=== PATIENT | female | born 1990 | race Caucasian/White ===

== ENCOUNTER 2017-01-14 21:17 | Emergency (ER) | payer OTHER ==
[~2017-01-14] VITALS: Ht 160 cm; Wt 56.7 kg
[2017-01-14] MEDS ORDERED: TETRACAINE 0.5% OPHTH SOLN 4ML XX ONE (23:30)
[2017-01-14] MEDS ORDERED: FLUORESCEIN OPHTH 1 MG STRIP XX ONE (23:30)
[2017-01-15] MEDS ORDERED: GENTAMICIN 0.3% OPHTH SOL 5 ML BTL OS ONE (00:15)
[2017-01-15 00:16] VITALS: BP 127/78
[2017-01-15] MEDS ORDERED: GENT3OPD OS (00:20)
== END 2017-01-15 00:28 | disposition home or self-care (01) ==
LOC: M ED 22:22
DX: S05.02XA Injury of conjunctiva and corneal abrasion without foreign body, left eye, initial encounter (principal); X58.XXXA Exposure to other specified factors, initial encounter; Y92.89 Other specified places as the place of occurrence of the external cause; Y93.89 Activity, other specified; Y99.9 Unspecified external cause status

== ENCOUNTER → 2018-06-26 | Outpatient (CLI) | payer OTHER ==
[~2018-06-26] MED LIST: ISOVUE-370 76% 100ML VIAL (Q9967) As Ordered
== END ==
LOC: M RAD 15:24
DX: R10.31 Right lower quadrant pain (principal); R11.2 Nausea with vomiting, unspecified

== ENCOUNTER → 2018-12-03 | Outpatient (CLI) | payer OTHER ==
[~2018-12-03] MED LIST changes: +GENT3OPD OS; -ISOVUE-370 76% 100ML VIAL (Q9967) As Ordered
--- NOTE | 2018-12-03 10:25 | REP ---
Complete abdominal sonography: History: Chronic nausea. Comparison CT study: June 26, 2018. Sonographic findings: Scanning through right upper quadrant of the abdomen demonstrates normal sized thin-walled gallbladder without evidence of stone or polyp. Common bile duct measures 0.3 cm in greatest diameter. No focal liver lesion is seen. Pancreas is unremarkable. A normal caliber aorta is seen, 1.5 cm in AP dimension. There is no evidence of ascites. Homogeneous normal size spleen is seen in the left upper quadrant. Renal cortical echogenicity pattern is normal and contours are smooth on both sides. Right renal dimensions are 10.7 x 6.1 x 3.9 cm. The left kidney measures 10.7 x 5.0 x 5.0 cm. There is an echogenic focus in the lower pole of the left kidney which could be a renal calculus. There is no evidence renal calculus on prior CT however. No other finding. Impression: Tiny echogenic focus lower pole left kidney which may be a renal calculus. Otherwise negative. Electronically Signed by Selvin Yaeger MD 12/03/2018 10:56 A
== END ==
LOC: M RAD 08:37
PROVIDERS: ATTEND Internal Medicine Gastroenterology
DX: N28.89 Other specified disorders of kidney and ureter (principal); K59.00 Constipation, unspecified

== ENCOUNTER 2018-12-25 11:17 | Day surgery (SDC) | payer OTHER ==
[~2018-12-25] VITALS: Ht 160 cm; Wt 55.3 kg
[~2018-12-25 11:17] MED LIST changes: +GENT0.3S36 OS; -GENT3OPD OS; +MIRA3350 PO; +NS 1,000 ML IV ONE; +PROZ20CA11 PO; +SYNT25TA PO; +ZOFR4TAB16 PO
[2018-12-25] MEDS ORDERED: LIDOCAINE 2% INJ 100 MG/5 ML SDV (FOR ANES.) As Ordered ONE (12:59)
[2018-12-25] MEDS ORDERED: PROPOFOL 200 MG/20 ML VIAL As Ordered ONE ×2 (12:59→13:36)
--- NOTE | 2018-12-25 13:55 | ROOR ---
Patient Name: Patsy Yang Procedure Date: 12/25/2018 1:14 PM Date of : 1990 Age: 28 Room: [facility] Gender: Female Note Status: Finalized Procedure: Upper GI endoscopy Indications: Dyspepsia, Nausea Providers: Scott Alejandro MD Referring MD: JERRY EDWARDS MD Requesting Provider: Medicines: Monitored Anesthesia Care Complications: No immediate complications. Procedure: Pre-Anesthesia Assessment: - Prior to the procedure, a History and Physical was performed, and patient medications and allergies were reviewed. The patient is competent. The risks and benefits of the procedure and the sedation options and risks were discussed with the patient. All questions were answered and informed consent was obtained. Patient identification and proposed procedure were verified by the physician, the nurse and the anesthesiologist in the procedure room. Mental Status Examination: alert and oriented. Airway Examination: normal oropharyngeal airway and neck mobility. Respiratory Examination: clear to auscultation. CV Examination: normal. Prophylactic Antibiotics: The patient does not require prophylactic antibiotics. Prior Anticoagulants: The patient has taken no previous anticoagulant or antiplatelet agents. ASA Grade Assessment: I - A normal, healthy patient. After reviewing the risks and benefits, the patient was deemed in satisfactory condition to undergo the procedure. The anesthesia plan was to use monitored anesthesia care (MAC). Immediately prior to administration of medications, the patient was re-assessed for adequacy to receive sedatives. The heart rate, respiratory rate, oxygen saturations, blood pressure, adequacy of pulmonary ventilation, and response to care were monitored throughout the procedure. The physical status of the patient was re-assessed after the procedure. The Endoscope was introduced through the mouth, and advanced to the second part of duodenum. The upper GI endoscopy was accomplished without difficulty. The patient tolerated the procedure well. Findings: The examined esophagus was normal. 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 The Z-line was regular and was found 37 cm from the incisors. Patchy mild inflammation characterized by erythema and granularity was found in the gastric body and in the gastric antrum. Biopsies were taken with a cold forceps for Helicobacter pylori testing. Verification of patient identification for the specimen was done by the physician and nurse using the patient's name, date and medical record number. Estimated blood loss was minimal. The duodenal bulb and second portion of the duodenum were normal. Biopsies for histology were taken with a cold forceps for evaluation of celiac disease. Impression: - Normal esophagus. - Ectopic gastric mucosa in the upper third of the esophagus. - Z-line regular, 37 cm from the incisors. - Gastritis. Biopsied. - Normal duodenal bulb and second portion of the duodenum. Biopsied. Recommendation: - Patient has a contact number available for emergencies. The signs and symptoms of potential delayed complications were discussed with the patient. Return to normal activities tomorrow. Written discharge instructions were provided to the patient. - Resume previous diet. - Continue present medications. - Await pathology results. - Based on the biopsy results you will receive a phone call from GI clinic in 2-3 weeks to review the pathology results AND/OR your results will be faxed to your Primary care physician. - Return to primary care physician. Scott Alejandro MD Scott Alejandro MD 12/25/2018 1:54:53 PM Electronically signed by Scott Alejandro MD Number of Addenda: 0 Note Initiated On: 12/25/2018 1:14 PM Estimated Blood Loss: Estimated blood loss was minimal.
--- NOTE | 2018-12-25 13:58 | ROOR ---
Patient Name: Patsy Yang Procedure Date: 12/25/2018 1:15 PM Date of : 1990 Age: 28 Room: [facility] Gender: Female Note Status: Finalized Procedure: Colonoscopy Indications: Change in bowel habits, Constipation Providers: Scott Alejandro MD Referring MD: JERRY EDWARDS MD Requesting Provider: Medicines: Monitored Anesthesia Care Complications: No immediate complications. Procedure: Pre-Anesthesia Assessment: - Prior to the procedure, a History and Physical was performed, and patient medications and allergies were reviewed. The patient is competent. The risks and benefits of the procedure and the sedation options and risks were discussed with the patient. All questions were answered and informed consent was obtained. Patient identification and proposed procedure were verified by the physician, the nurse and the anesthesiologist in the procedure room. Mental Status Examination: alert and oriented. Airway Examination: normal oropharyngeal airway and neck mobility. Respiratory Examination: clear to auscultation. CV Examination: normal. Prophylactic Antibiotics: The patient does not require prophylactic antibiotics. Prior Anticoagulants: The patient has taken no previous anticoagulant or antiplatelet agents. ASA Grade Assessment: II - A patient with mild systemic disease. After reviewing the risks and benefits, the patient was deemed in satisfactory condition to undergo the procedure. The anesthesia plan was to use monitored anesthesia care (MAC). Immediately prior to administration of medications, the patient was re-assessed for adequacy to receive sedatives. The heart rate, respiratory rate, oxygen saturations, blood pressure, adequacy of pulmonary ventilation, and response to care were monitored throughout the procedure. The physical status of the patient was re-assessed after the procedure. The Colonoscope was introduced through the anus and advanced to the terminal ileum, with identification of the appendiceal orifice and IC valve. The colonoscopy was performed without difficulty. The patient tolerated the procedure well. The quality of the bowel preparation was good. The terminal ileum, ileocecal valve, appendiceal orifice, and rectum were photographed. Scope insertion time was 3 minutes. Scope withdrawal time was 6 minutes. The total duration of the procedure was 9 minutes. Findings: The perianal and digital rectal examinations were normal. The terminal ileum appeared normal. Normal mucosa was found in the entire colon. Non-bleeding external and internal hemorrhoids were found during retroflexion. The hemorrhoids were small. Impression: - The examined portion of the ileum was normal. - Normal mucosa in the entire examined colon. - Non-bleeding external and internal hemorrhoids. - No specimens collected. Recommendation: - Patient has a contact number available for emergencies. The signs and symptoms of potential delayed complications were discussed with the patient. Return to normal activities tomorrow. Written discharge instructions were provided to the patient. - High fiber diet. - Continue present medications. - Colace capsule(s) orally 100 mg BID for 12 weeks. - Senokot-S 2 tablets PO q HS for 12 weeks. Scott Alejandro MD Scott Alejandro MD 12/25/2018 1:58:19 PM Electronically signed by Scott Alejandro MD Number of Addenda: 0 Note Initiated On: 12/25/2018 1:15 PM Estimated Blood Loss: Estimated blood loss was minimal.
[2018-12-25 14:19] VITALS: BP 114/75
== END 2018-12-25 14:28 | disposition home or self-care (01) ==
LOC: M OPP 11:17
PROVIDERS: ATTEND Internal Medicine Gastroenterology
DX: K64.8 Other hemorrhoids (principal); R19.4 Change in bowel habit; K29.70 Gastritis, unspecified, without bleeding; R10.13 Epigastric pain; R11.0 Nausea; Z79.899 Other long term (current) drug therapy; Z97.5 Presence of (intrauterine) contraceptive device